=== PATIENT | female | born 1990 | race American Indian/Alaskan Native ===

== ENCOUNTER 2016-04-10 23:12 | Emergency (ER) | payer OTHER ==
[~2016-04-10] VITALS: Ht 175.3 cm; Wt 70.0 kg
[~2016-04-10 23:12] MED LIST: CIPR500T4 PO; HYDR-906 PO; IBUP800T25 PO; METR500T PO
[2016-04-10 23:14] VITALS: Ht 175.3 cm; Wt 70.0 kg
[2016-04-11] MEDS ORDERED: IBUPROFEN 600 MG TAB PO ONE (02:30)
--- NOTE | 2016-04-11 02:42 | ERD ---
ER Documentation Chief Complaint Date/Time DATE: 04/11/16 TIME: 02:38 Chief Complaint L HAND 3RD AND 4TH FINGER PAIN AFTER PUNCHING A WALL HPI 25-year-old female complaining of pain in the third and fourth digit of the left hand after punching her bathroom door earlier today. The pain is at the PIP joint of the left third and fourth digits. She was able to have full range of motion after injury. Patient also complaining of left chest wall pain on and off of 5 days. The pain has become worse the last 2-3 days. She reports increased stress. Denies shortness of breath. Denies fever or chills. Denies any other injuries. ROS All systems reviewed and are negative except as per history of present illness. Medications Home Meds Active Scripts Ibuprofen* (Motrin*) 600 Mg Tab, 600 MG PO Q6H Y for PAIN AND OR ELEVATED TEMP, #30 TAB Prov:BRITNEY SIMPSON. [employer] 04/11/16 Hydrocodone/Acetaminophen (Mena 5-325 Tablet) 1 Each Tablet, 1 TAB PO Q6H Y for PAIN, #10 TAB Prov:KEESHA ABBOTT PA-C 01/26/16 Ibuprofen* (Motrin*) 800 Mg Tab, 800 MG PO Q6, #30 TAB Prov:KEESHA ABBOTTC 01/26/16 Metronidazole* (Flagyl*) 500 Mg Tablet, 500 MG PO BID for 10 Days, TAB Prov:KEESHA ABBOTTC 01/26/16 Ciprofloxacin Hcl* (Ciprofloxacin Hcl*) 500 Mg Tablet, 500 MG PO BID for 10 Days , TAB Prov:KEESHA ABBOTT PA-C 01/26/16 Allergies Allergies: Coded Allergies: No Known Allergy (Unverified , 01/25/16) PMhx/Soc History of Surgery: Yes (RHINOPLASTY) Anesthesia Reaction: No Hx Neurological Disorder: No Hx Respiratory Disorders: Yes (asthma) Hx Cardiac Disorders: No Hx Psychiatric Problems: No Hx Miscellaneous Medical Probl: No Hx Alcohol Use: Yes (socially) Hx Substance Use: Yes (marijuana) Hx Tobacco Use: No Smoking Status: Never smoker Physical Exam Vitals Vital Signs Date Time Temp Pulse Resp B/P Pulse Ox O2 Delivery O2 Flow Rate FiO2 04/10/16 23:14 98.5 107 18 129/80 99 Physical Exam General impression: Well-developed, well-nourished. Alert, oriented, in no acute distress Head: Normocephalic, atraumatic. Eyes: PERRL, EOM normal. Conjunctiva not injected. ENT: External canals clear. TM's pearly levin. Nasal mucosa, oral mucosa and oropharynx are normal. Neck: Supple, nontender. No lymphadenopathy. No nuchal rigidity. Respiration: Normal respiratory effort. Lungs clear to auscultate bilaterally. No wheezes, rales or rhonchi. Cardiovascular: Regular rate and rhythm. No murmurs or extra heart sounds. Left chest wall reproducible tenderness on palpation. Extremities: The PIP joint of the left third and fourth digits swollen, slightly ecchymotic, and tender. Decreased flexion noted of those 2 digits. Neurovascularly intact. Neuro: Mental status normal, speech normal. [employer] T[employer] W[employer]DER grossly intact. Skin: Normal turgor. No rash or lesions. Psych: Normal mood and affect. Results 24 hrs Current Medications Medications (Trade) Dose Ordered Sig/Jules Route PRN Reason Start Time Stop Time Status Last Admin Dose Admin Ibuprofen (Motrin) 600 mg ONCE ONCE PO 04/11/16 02:30 04/11/16 02:31 DC 04/11/16 02:12 Procedures/MDM EKG: Normal sinus rhythm, normal axis. No ST segment elevation or depression. No ectopic beats. No QT prolongation. No other EKG abnormalities. EKG read by Dr. Soria. Low suspicion for acute coronary syndrome, aortic dissection, pneumonia , pneumothorax, or PE. Patient has reproducible chest wall tenderness to palpation. Likely patient chest pain was from costochondritis. X-rays of the left hand is negative for fractures dislocations. Likely patient' s finger pain is due to sprain. The area of injury was immobilized with a foster tape splint. Patient was noted to be comfortable and neurovascularly intact both before and after the immobilization. Patient appears well, stable for discharge and outpatient management. Medical decision making shared with patient and family. Education provided to patient and family. Patient and family expressed understanding of the plan. Medications on discharge: Ibuprofen. Follow-up: Primary care provider in 2-3 days or return to ED if worse. BRITNEY SIMPSON NP Apr 11, 2016 02:42
--- NOTE | 2016-04-11 02:55 | RADRPT ---
PROCEDURE: XR hand. CLINICAL INDICATION: Trauma TECHNIQUE: AP, lateral and oblique views of the left hand was obtained. COMPARISON: There are no similar studies submitted for comparison. FINDINGS: There is normal bone mineralization. There is no acute fracture or dislocation. No osseous erosions are identified. The joint spaces are within normal limits. There is no soft tissue swelling. IMPRESSION: No acute fracture or dislocation. RPTAT: HIKT .Nick Amador MD, MD Date Time Electronically viewed and signed by .Nick Amador MD, MD on 04/11/2016 02:55 .T/
[2016-04-11] MEDS ORDERED: IBUP-1542 PO (04:05)
== END 2016-04-11 04:12 | disposition home or self-care (01) ==
LOC: FTE 23:12
DX: S69.92XA Unspecified injury of left wrist, hand and finger(s), initial encounter (principal); J45.909 Unspecified asthma, uncomplicated; R07.89 Other chest pain; W22.01XA Walked into wall, initial encounter; Y92.002 Bathroom of unspecified non-institutional (private) residence as the place of occurrence of the external cause
CPT/HCPCS: 73130; Z7502; Z7610